=== PATIENT | female | born 1990 | race Caucasian/White ===

== ENCOUNTER → 2025-07-13 | Outpatient (CLI) | payer SELFPAY ==
--- NOTE | 2025-07-13 12:22 | RAD_ITS ---
PROCEDURE: CERV SPINE 4 OR 5 VIEWS 07/13/2025 REASON FOR EXAM: PAIN TECHNIQUE: Procedure Code: RADSPC Modality: DX Procedure: CERV SPINE 4 OR 5 VIEWS COMPARISON: None. FINDINGS: There is loss of the normal cervical lordosis. There are no compression fractures or subluxations. There is degenerative disc disease, C5-6 and C6-7 with narrowing of the intervertebral disc spaces and marginal osteophytes. There is no significant facet arthropathy. There is no spondylolisthesis. The paravertebral soft tissues are normal. RAD/Cerv Spine 4 or 5 Views IMPRESSION: Multilevel degenerative disc disease with cervical spasm. Reading Location: [place] [id number]
== END | disposition home or self-care (01) ==
LOC: RAD 12:11
PROVIDERS: PCP Family Medicine; Visit Provider Chiropractor Orthopedic
DX: M99.01 Segmental and somatic dysfunction of cervical region (principal)
CPT/HCPCS: 72050